=== PATIENT | male | born 1975 | race Caucasian/White ===

== ENCOUNTER 2018-12-25 07:46 | Emergency (ER) | payer SELFPAY ==
[~2018-12-25] VITALS: Ht 175.3 cm; Wt 102.1 kg
[~2018-12-25 07:46] MED LIST: GABA-532 PO; MELO15TA13 PO; [UNRECOGNIZED DRUG - REMARK] PO
[2018-12-25] MEDS ORDERED: FLUORESCEIN SODIUM 1 MG STRIP ONE (07:53)
[2018-12-25] MEDS ORDERED: TETRACAINE HCL 0.5% OPHT DROP 2 ML BOTTLE ONE (07:53)
--- NOTE | 2018-12-25 07:55 | NUR ---
RECEIVED PT C/O LT EYE BURNING, SEEN BY MD, ASSESSMENT MADE, ABX DROP GIVEN BY MD, PT REFUSED CT SCAN.PT FOR DISCHARGE, RECVEIVED PERSCRIPTION AND DISCHARGE INSTRUCTIONS.
[2018-12-25] MEDS ORDERED: GENTAMICIN SULFATE OPHT DROP 5 ML BOTTLE ONE (07:56)
[2018-12-25] MEDS ORDERED: GENTAMICIN SULFATE OPHT DROP 5 ML BOTTLE OP ONE (08:00)
[2018-12-25] MEDS ORDERED: TETRACAINE HCL 0.5% OPHT DROP 2 ML BOTTLE OP ONE (08:00)
[2018-12-25] MEDS ORDERED: FLUORESCEIN SODIUM 1 MG STRIP OP ONE (08:00)
== END 2018-12-25 08:15 | disposition home or self-care (01) ==
LOC: ER 07:46
DX: S05.02XA Injury of conjunctiva and corneal abrasion without foreign body, left eye, initial encounter (principal); F17.200 Nicotine dependence, unspecified, uncomplicated; Z79.899 Other long term (current) drug therapy; X58.XXXA Exposure to other specified factors, initial encounter; Y93.89 Activity, other specified; Y92.89 Other specified places as the place of occurrence of the external cause; Y99.8 Other external cause status
CPT/HCPCS: A4663